=== PATIENT | female | born 1970 | race Caucasian/White ===

== ENCOUNTER → 2016-06-22 | Outpatient (CLI) | payer OTHER ==
[~2016-06-22] MED LIST: ADDERALL5 MG PO; ANAPROX DS550 MG PO; BENTYL10 MG PO; CELECOXIB200 MG PO; CIPROFLOXACIN500 MG PO; CLARITIN10 MG PO; ESTRACE0.5 MG PO; FIORICET 325 MG1 TAB PO; FIORICET 50-301 EACH PO; FLONASE ALLERG9.9 ML NS; IMITREX100 MG PO; IMITREX25 MG PO; INDERAL20 MG PO; LANSOPRAZOLE30 MG PO; LASIX20 MG PO; MOBIC7.5 MG PO; MOTRIN800 MG PO; NAPROSYN500 MG PO; OYSTER SHELL C500 M3 PO; PREMARIN0.625 M1 PO; PRILOSEC20 M1 PO; PROVIGIL200 MG PO; SYNTHROID,LEV100 MCG PO; SYNTHROID,LEVO75 MCG PO; SYNTHROID0.075 MG PO; TAMIFLU75 MG PO; TOPAMAX50 MG PO; TRAMADOL50 MG PO; TUSSI ORGANIDI PO; VENTOLIN H0.09 MG/AC INH; VICODIN 5/500 505 MG PO; VIT D PO; ZOFRAN4 MG PO; ZYRTEC10 MG PO
== END | disposition home or self-care (01) ==
LOC: MAMMO 03:18
DX: Z12.31 Encounter for screening mammogram for malignant neoplasm of breast (principal)

== ENCOUNTER → 2016-09-12 | Outpatient (CLI) | payer OTHER | END | disposition home or self-care (01) | LOC: US 01:55 | DX: R10.30 Lower abdominal pain, unspecified (principal) ==

== ENCOUNTER → 2017-08-02 | Outpatient (CLI) | payer OTHER | END | disposition home or self-care (01) | LOC: RAD 20:05 | DX: M19.071 Primary osteoarthritis, right ankle and foot (principal); Z91.81 History of falling ==

== ENCOUNTER 2017-11-12 15:58 | Emergency (ER) | payer OTHER ==
[~2017-11-12] VITALS: Wt 73.9 kg
--- NOTE | ~2017-11-12 | EKG ---
[place], [place] ELECTROCARDIOGRAM REPORT NAME: SONI HAJI UNIT #: [id number] ROOM: DOCTOR: EPIPHANY DRAFT REPORT BIRTHDATE: [birth year] [facility] Test Date: 2017-11-12 Test Time: 18:59:23 Pat Name: SONI HAJI Department: ER Room: 12 Gender: F [place] Drill Operator: Gennaro Messina : 1970 Requested By: ROOSEVELT AVALOS Order Number: [id number] Reading MD: Siomara Silva MD Measurements Intervals [place] Rate: 68 P: 56 [place]: 197 QRS: 36 QRSD: 96 T: 47 QT: 396 QTc: 422 Interpretive Statements Sinus rhythm Normal ECG Electronically Signed On 11-14-2017 7:47:46 PDT by Siomara Silva MD CM:EKGRPT:ELECTROCARDIOGRAM REPORT [id number] ROOSEVELT AVALOS MD EPIPHANY DRAFT REPORT ROOSEVELT AVALOS MD
--- NOTE | ~2017-11-12 | EKG ---
[place], [place] ELECTROCARDIOGRAM REPORT NAME: SONI HAJI UNIT #: [id number] ROOM: DOCTOR: EPIPHANY DRAFT REPORT BIRTHDATE: [birth year] [facility] Test Date: 2017-11-12 Test Time: 16:12:13 Pat Name: SONI HAJI Department: Room: Gender: F Quality Assurance Consultant: : 1970 Requested By: ROOSEVELT AVALOS Order Number: [id number] Reading MD: Siomara Silva MD Measurements Intervals [place] Rate: 65 P: 51 [place]: 176 QRS: 24 QRSD: 91 T: 41 QT: 413 QTc: 430 Interpretive Statements Sinus rhythm Normal ECG Electronically Signed On 11-14-2017 7:44:45 PDT by Siomara Silva MD CM:EKGRPT:ELECTROCARDIOGRAM REPORT [id number] [id number] [facility] D[facility]PORT ROOSEVELT AVALOS MD
[2017-11-12 16:27] LABS: BASO # 0.1 10*3/uL (0.0-0.1); BASO % 1.1 % (0.0-1.0); EOS # 0.2 10*3/uL (0.0-0.4); EOS % 3.2 % (1.0-4.0); HEMATOCRIT 41.5 % (37.0-47.0); HEMOGLOBIN 14.2 g/dl (12.0-16.0); LYMPH % 41.1 % (27.0-41.0); MEAN CELL VOLUME 85.9 fl (81.0-99.0); MEAN CORPUSCULAR HGB 29.4 pg (27.0-31.0); MEAN CORPUSCULAR HGB CONC 34.2 g/dl (33.0-37.0); MEAN PLATELET VOLUME 9.8 fl (9.6-12.3); MONO # 0.7 10*3/uL (0.1-1.0); NEUT # 1.9 10*3/uL (2.3-7.9); NEUT % 39.4 % (47.0-73.0); PLATELET COUNT AUTOMATED 266 10*3/uL (130-400); RED BLOOD COUNT 4.83 10*6/uL (4.10-5.10); RED CELL DISTRI WIDTH 12.5 % (0-14.5); WHITE BLOOD COUNT 4.7 10*3/uL (4.8-10.8)
[2017-11-12 16:38] LABS: ACT PARTIAL THROMBO TIME 25.7 SECONDS (20.8-31.5)
[2017-11-12 16:51] LABS: ALBUMIN 3.6 gm/dl (3.1-4.5); ALKALINE PHOSPHATASE 56 U/L (45-117); BUN 11 mg/dl (7-24); CHLORIDE 110 mmol/L (98-107); CREATININE 0.69 mg/dL (0.55-1.02); POTASSIUM 3.6 mmol/L (3.5-5.1); SGOT/AST 30 IU/L (3-35); SGPT/ALT 43 U/L (12-78); SODIUM 141 mmol/L (136-145); TOTAL PROTEIN 6.7 gm/dL (6.4-8.2)
[2017-11-12 16:52] LABS: TROPONIN I < 0.015 ng/ml (<0.045)
[2017-11-12 18:41] LABS: BILIRUBIN NEGATIVE (NEGATIVE); BLOOD NEGATIVE (NEGATIVE); CLARITY CLEAR (CLEAR); COLOR YELLOW (YELLOW); GLUCOSE NEGATIVE (NEGATIVE); KETONE NEGATIVE (NEGATIVE); LEUKO ESTERASE NEGATIVE (NEGATIVE); NITRITE NEGATIVE (NEGATIVE); PH 5.5 (5.0-9.0); SPECIFIC GRAVITY <= 1.005 (1.005-1.030); UROBILINOGEN 0.2 E.U./dl (0.2-1.0)
[2017-11-12 18:48] LABS: WBC 0-2 wbc/hpf (0-5)
== END 2017-11-12 21:36 | disposition home or self-care (01) ==
LOC: ED 15:58
PROVIDERS: Emergency Medicine; Nurse Practitioner
DX: R07.9 Chest pain, unspecified (principal); R20.0 Anesthesia of skin; R20.2 Paresthesia of skin; Z79.899 Other long term (current) drug therapy

== ENCOUNTER → 2017-12-19 | Outpatient (CLI) | payer OTHER | END | disposition home or self-care (01) | LOC: RAD 18:04 | DX: M47.892 Other spondylosis, cervical region (principal); M79.601 Pain in right arm; R20.0 Anesthesia of skin ==

== ENCOUNTER → 2018-01-15 | Outpatient (CLI) | payer OTHER | END | disposition home or self-care (01) | LOC: LAB 17:22 | DX: Z52.4 Kidney donor (principal) ==

== ENCOUNTER → 2018-01-16 | Outpatient (CLI) | payer OTHER | END | disposition home or self-care (01) | LOC: MAMMO 04:08 | DX: Z12.31 Encounter for screening mammogram for malignant neoplasm of breast (principal) ==

== ENCOUNTER → 2018-05-25 | Outpatient (CLI) | payer OTHER ==
[~2018-05-25] MED LIST changes: +ACETAMINOPHEN500 M4 PO; +ACYCLOVIR15 GM TD; +ADDERALL 30 MG30 MG PO; -ADDERALL5 MG PO; +ALENDRONATE SOD70 M1 PO; +BUPROPION75 MG PO; +FUROSEMIDE40 MG PO; +INDERAL LA120 M1 PO; -INDERAL20 MG PO; +LINZESS290 MC1 PO; +OXYBUTYNIN CHLOR5 M1 PO; +OYSTER SHELL 51 EACH PO; +PHENERGAN25 M3 PO; +PROVENTIL HFA6.7 GM INH; +Synthroid,Levo88 MCG PO; +VENLAFAXINE HYD75 M3 PO; -VENTOLIN H0.09 MG/AC INH; -VIT D PO; +VITAMIN C1000 M4 PO; +VITAMIN D5000 UNI1 PO; +VITAMIN E400 UNI2 PO; +VITAMIN E400 UNI3 PO
[2018-05-25 11:05] LABS: FREE T4 1.53 ng/dl (0.76-1.46); THYROID STIM HORMONE (HS) 0.19 uIU/ml (0.358-4.75)
[2018-05-26 07:10] LABS: DHEA SULFATE 85.7 ug/dL (41.2-243.7); FOLLICLE STIMULATING HORMONE 73.4 mIU/mL (.); LUTEINIZING HORMONE 004283 33.8 mIU/mL (.)
[2018-05-27 10:04] LABS: TESTOSTERONE FREE, (DIRECT) 1.6 pg/mL (0.0-4.2)
== END ==
LOC: US 05-01 02:53 → LAB 00:16 → US 09:00
PROVIDERS: Internal Medicine
DX: M47.896 Other spondylosis, lumbar region (principal); M47.894 Other spondylosis, thoracic region; L67.8 Other hair color and hair shaft abnormalities; N95.9 Unspecified menopausal and perimenopausal disorder; L68.0 Hirsutism; J45.21 Mild intermittent asthma with (acute) exacerbation; M54.5 Low back pain; R10.11 Right upper quadrant pain; M85.88 Other specified disorders of bone density and structure, other site; J45.909 Unspecified asthma, uncomplicated; Z90.49 Acquired absence of other specified parts of digestive tract

== ENCOUNTER → 2018-06-11 | Outpatient (CLI) | payer OTHER | END | disposition home or self-care (01) | LOC: RAD 06-04 11:30 | DX: M85.80 Other specified disorders of bone density and structure, unspecified site (principal); N95.9 Unspecified menopausal and perimenopausal disorder; E03.9 Hypothyroidism, unspecified; Z90.710 Acquired absence of both cervix and uterus ==

== ENCOUNTER 2018-07-31 19:34 | Emergency (ER) | payer OTHER ==
[~2018-07-31] VITALS: Ht 165.1 cm; Wt 76.7 kg
[~2018-07-31 19:34] MED LIST changes: -ACETAMINOPHEN500 M4 PO; -ACYCLOVIR15 GM TD; -ALENDRONATE SOD70 M1 PO; -BUPROPION75 MG PO; -FUROSEMIDE40 MG PO; -LINZESS290 MC1 PO; -OXYBUTYNIN CHLOR5 M1 PO; -OYSTER SHELL 51 EACH PO; -PHENERGAN25 M3 PO; -Synthroid,Levo88 MCG PO; -VENLAFAXINE HYD75 M3 PO; -VITAMIN C1000 M4 PO; -VITAMIN E400 UNI2 PO; -VITAMIN E400 UNI3 PO
[2018-09-12] MEDS ORDERED: ACYCLOVIR15 GM TD (06:04)
[2018-09-12] MEDS ORDERED: VITAMIN C1000 M4 PO (06:04)
[2018-09-12] MEDS ORDERED: BUPROPION75 MG PO (06:04)
[2018-09-12] MEDS ORDERED: FUROSEMIDE40 MG PO (06:05)
[2018-09-12] MEDS ORDERED: Synthroid,Levo88 MCG PO (06:05)
[2018-09-12] MEDS ORDERED: ALENDRONATE SOD70 M1 PO (06:05)
[2018-09-12] MEDS ORDERED: OXYBUTYNIN CHLOR5 M1 PO (06:05)
[2018-09-12] MEDS ORDERED: VENLAFAXINE HYD75 M3 PO (06:06)
[2018-09-12] MEDS ORDERED: LINZESS290 MC1 PO (06:06)
[2018-09-12] MEDS ORDERED: OYSTER SHELL 51 EACH PO (06:06)
[2018-09-12] MEDS ORDERED: ACETAMINOPHEN500 M4 PO (06:07)
[2018-09-12] MEDS ORDERED: PHENERGAN25 M3 PO (06:07)
[2018-09-12] MEDS ORDERED: VITAMIN E400 UNI2 PO (06:08)
[2018-09-12] MEDS ORDERED: VITAMIN E400 UNI3 PO (13:04)
== END 2018-07-31 21:34 | disposition home or self-care (01) ==
LOC: ED 19:34
DX: M79.671 Pain in right foot (principal); R22.41 Localized swelling, mass and lump, right lower limb; Z90.710 Acquired absence of both cervix and uterus; Z79.899 Other long term (current) drug therapy; X50.1XXA Overexertion from prolonged static or awkward postures, initial encounter; Y93.A1 Activity, exercise machines primarily for cardiorespiratory conditioning; Y92.89 Other specified places as the place of occurrence of the external cause; Y99.9 Unspecified external cause status

== ENCOUNTER → 2019-09-18 | Outpatient (CLI) | payer OTHER ==
[~2019-09-18] MED LIST changes: +ACETAMINOPHEN500 M4 PO; +ACYCLOVIR15 GM TD; +ALENDRONATE SOD70 M1 PO; +BUPROPION75 MG PO; +FUROSEMIDE40 MG PO; +LINZESS290 MC1 PO; +OXYBUTYNIN CHLOR5 M1 PO; +OYSTER SHELL 51 EACH PO; +PHENERGAN25 M3 PO; +Synthroid,Levo88 MCG PO; +VENLAFAXINE HYD75 M3 PO; +VITAMIN C1000 M4 PO; +VITAMIN E400 UNI2 PO; +VITAMIN E400 UNI3 PO
== END | disposition home or self-care (01) ==
LOC: RAD 07:13
DX: M77.31 Calcaneal spur, right foot (principal)

== ENCOUNTER → 2019-10-02 | Outpatient (CLI) | payer OTHER | END | disposition home or self-care (01) | LOC: COVID19 13:28 | DX: Z03.818 Encounter for observation for suspected exposure to other biological agents ruled out (principal) ==

== ENCOUNTER → 2020-04-23 | Outpatient (CLI) | payer OTHER | END | disposition home or self-care (01) | LOC: COVID19 10:36 | PROVIDERS: ATTEND Internal Medicine | DX: Z20.822 Contact with and (suspected) exposure to COVID-19 (principal) ==

== ENCOUNTER → 2020-04-28 | Outpatient (CLI) | payer OTHER | END | disposition home or self-care (01) | LOC: COVID19 10:55 | PROVIDERS: ATTEND Internal Medicine | DX: U07.1 COVID-19 (principal) ==

== ENCOUNTER → 2021-02-22 | Outpatient (CLI) | payer OTHER | END | disposition home or self-care (01) | LOC: US 02:34 | PROVIDERS: ATTEND Internal Medicine | DX: R10.31 Right lower quadrant pain (principal); Z90.49 Acquired absence of other specified parts of digestive tract; Z90.710 Acquired absence of both cervix and uterus; Z90.722 Acquired absence of ovaries, bilateral ==

== ENCOUNTER → 2021-03-30 | Outpatient (CLI) | payer OTHER | END | disposition home or self-care (01) | LOC: COVID19 17:39 | PROVIDERS: ATTEND Student in an Organized Health Care Education/Training Program | DX: Z11.52 Encounter for screening for COVID-19 (principal) ==

== ENCOUNTER → 2021-04-14 | Outpatient (CLI) | payer OTHER | END | disposition home or self-care (01) | LOC: RAD 16:54 | PROVIDERS: ATTEND Internal Medicine | DX: M25.462 Effusion, left knee (principal); R07.81 Pleurodynia; M54.2 Cervicalgia ==

== ENCOUNTER → 2021-06-28 | Outpatient (CLI) | payer OTHER | END | disposition home or self-care (01) | LOC: RAD 16:47 | PROVIDERS: ATTEND Internal Medicine | DX: Z12.31 Encounter for screening mammogram for malignant neoplasm of breast (principal) ==

== ENCOUNTER → 2022-09-13 | Outpatient (CLI) | payer OTHER ==
[2022-09-13 08:44] LABS: BASO % 0.8 % (0.0-1.0); EOS # 0.1 10*3/uL (0.0-0.4); EOS % 1.3 % (1.0-4.0); LYMPH # 1.2 10*3/uL (1.3-4.4); MEAN CELL VOLUME 89.3 fl (81.0-99.0); MEAN CORPUSCULAR HGB 29.2 pg (27.0-31.0); MEAN CORPUSCULAR HGB CONC 32.7 g/dl (33.0-37.0); MEAN PLATELET VOLUME 9.5 fl (9.6-12.3); MONO # 0.5 10*3/uL (0.1-1.0); MONO % 12.1 % (3.0-9.0); NEUT # 2.3 10*3/uL (2.3-7.9); NEUT % 56.5 % (47.0-73.0); PLATELET COUNT AUTOMATED 298 10*3/uL (130-400); RED BLOOD COUNT 5.04 10*6/uL (4.10-5.10); RED CELL DISTRI WIDTH 13.2 % (0-14.5)
[2022-09-13 09:12] LABS: TOTAL PROTEIN 6.7 gm/dL (6.0-8.0)
== END | disposition home or self-care (01) ==
LOC: LAB 00:32 → MAMMO 07:30 → LAB 07:30 → MAMMO 09-19 16:30
PROVIDERS: Internal Medicine Nephrology; ATTEND Internal Medicine
DX: Z12.31 Encounter for screening mammogram for malignant neoplasm of breast (principal); R42 Dizziness and giddiness; R21 Rash and other nonspecific skin eruption; R07.89 Other chest pain

== ENCOUNTER 2024-06-22 10:50 | Emergency (ER) | payer OTHER ==
[~2024-06-22] VITALS: Ht 165.1 cm; Wt 66.7 kg
[2024-06-22 11:35] LABS: BASO % 0.9 % (0.0-1.0); EOS # 0.3 10*3/uL (0.0-0.4); EOS % 5.4 % (1.0-4.0); HEMATOCRIT 43.5 % (37.0-47.0); MEAN CELL VOLUME 89.9 fl (81.0-99.0); MEAN CORPUSCULAR HGB 29.1 pg (27.0-31.0); MEAN CORPUSCULAR HGB CONC 32.4 g/dl (33.0-37.0); MEAN PLATELET VOLUME 9.2 fl (9.6-12.3); MONO # 0.5 10*3/uL (0.1-1.0); MONO % 11.5 % (3.0-9.0); NEUT # 2.5 10*3/uL (2.3-7.9); NEUT % 53.4 % (47.0-73.0); PLATELET COUNT AUTOMATED 308 10*3/uL (130-400); RED BLOOD COUNT 4.84 10*6/uL (4.10-5.10); RED CELL DISTRI WIDTH 12.4 % (0-14.5); WHITE BLOOD COUNT 4.6 10*3/uL (4.8-10.8)
[2024-06-22 11:52] LABS: BUN 15 mg/dl (9-23); CHLORIDE 108 mmol/L (98-107); POTASSIUM 4.5 mmol/L (3.4-5.1)
[2024-06-22] MEDS ORDERED: PREDNISONE50 MG PO (12:22)
[2024-06-22] MEDS ORDERED: BROMFED DM COU118 M2 PO (12:22)
[2024-06-22] MEDS ORDERED: methylPREDNISolone sod succ 125 MG VIAL IM ONE (12:25)
== END 2024-06-22 12:45 | disposition home or self-care (01) ==
LOC: ED 10:50
PROVIDERS: Nurse Practitioner Family
DX: R05.9 Cough, unspecified (principal); Z79.899 Other long term (current) drug therapy; Z90.710 Acquired absence of both cervix and uterus

== ENCOUNTER → 2024-09-19 | Outpatient (CLI) | payer OTHER ==
[~2024-09-19] MED LIST changes: +BROMFED DM COU118 M2 PO; +PREDNISONE50 MG PO
== END | disposition home or self-care (01) ==
LOC: RAD 16:17
PROVIDERS: ATTEND Internal Medicine
DX: M77.32 Calcaneal spur, left foot (principal); M77.31 Calcaneal spur, right foot; M79.671 Pain in right foot; M79.672 Pain in left foot

== ENCOUNTER → 2025-03-10 | Outpatient (CLI) | payer OTHER | END | disposition home or self-care (01) | LOC: LAB 12:40 | PROVIDERS: ATTEND Internal Medicine | DX: J06.9 Acute upper respiratory infection, unspecified (principal) ==